=== PATIENT | female | born 1990 | race Caucasian/White ===

== ENCOUNTER 2021-01-04 15:24 | Emergency (ER) | payer SELFPAY ==
[2021-01-04 16:12] LABS: CHLORIDE,CL 97 mEq/L (98-106); SODIUM,NA 141 mEq/L (136-145)
--- NOTE | 2021-01-04 16:41 | EDM.PDOC ---
ED HPI GENERAL MEDICAL PROBLEM - General Chief Complaint: General Stated Complaint: "mental" Time Seen by Provider: 01/04/21 15:35 Source of Information: Reports: Patient, RN - History of Present Illness INITIAL COMMENTS - FREE TEXT/NARRATIVE: States that she has been drinking heavily for some time. She admits to drinking a gallon of vodka daily for some time. She has had 750 ml today already, She s tates that she feels that she should get some help. She wants to go to the [facility]. She has been there before. "I'm a mess". She is alert and oriented. She is walking, talking and laughing. 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 - Past Surgical History Dermatological Surgical History: Reports: Other (See Below) Social & Family History - Family History Family Medical History: Unobtainable - Tobacco Use Tobacco Use Status *Q: Current Every Day Tobacco User Years of Tobacco use: 15 Packs/Tins Daily: 1 - Alcohol Use Days Per Week of Alcohol Use: 7 Number of Drinks Per Day: 1 Total Drinks Per Week: 7 - Recreational Drug Use Recreational Drug Use: Yes Recreational Drug Type: Reports: Marijuana/Hashish Recreational Drug Use Frequency: Socially - Living Situation & Occupation Living situation: Reports: Other Occupation: Unemployed ED ROS GENERAL - Review of Systems Review Of Systems: See Below Constitutional: Denies: Fever, Chills, Weakness HEENT: Reports: No Symptoms Respiratory: Reports: No Symptoms Cardiovascular: Reports: No Symptoms GI/Abdominal: Reports: No Symptoms : Reports: No Symptoms Musculoskeletal: Reports: No Symptoms Skin: Reports: No Symptoms Neurological: Reports: No Symptoms Psychiatric: Reports: Anxiety ED EXAM, GENERAL - Physical Exam Exam: See Below Exam Limited By: No Limitations General Appearance: Alert, WD/WN, No Apparent Distress Throat/Mouth: Normal Oropharynx, Normal Voice Head: Atraumatic, Normocephalic Neck: Normal Inspection, Supple, Non-Tender Respiratory/Chest: No Respiratory Distress, Lungs Clear, Normal Breath Sounds Cardiovascular: Regular Rate, Rhythm, Tachycardia GI/Abdominal: Normal Bowel Sounds, Soft, Non-Tender Extremities: Normal Range of Motion, Normal Capillary Refill Neurological: Alert, Oriented, Normal Cognition Psychiatric: Normal Affect Skin Exam: Warm, Dry, Intact Course - Vital Signs Last Recorded V/S: Last Vital Signs Temp 99.3 F 01/04/21 15:26 Pulse 133 H 01/04/21 16:17 Resp 16 01/04/21 15:26 BP 150/91 H 01/04/21 15:26 Pulse Ox 96 01/04/21 15:26 - Orders/Labs/Meds Orders: Active Orders 24 hr Category Date Time Status ACETAMINOPHEN [REF] Routine Lab 01/04/21 15:39 Received SALICYLATE [REF] Routine Lab 01/04/21 15:41 Received Labs: Laboratory Tests 01/04/21 01/04/21 01/04/21 Range/Units 15:39 15:39 15:39 WBC 10.8 H (5.0-10.0) 10^3/uL RBC 4.02 (4.00-5.50) 10^6/uL Hgb 13.1 (12.0-16.0) g/dL Hct 39.0 (37.0-47.0) % MCV 97.0 H (82.0-94.0) fL MCH 32.6 H (27.0-32.0) pg MCHC 33.6 (33.0-38.0) g/dL RDW Coeff of Deb 16.2 H (11.0-15.0) % Plt Count 414 H (150-400) 10^3/uL Neut % (Auto) 58.9 (35-85) % Lymph % (Auto) 34.0 (10-55) % Bulloch % (Auto) 6.1 (0-16) % Eos % (Auto) 0.3 (0-5) % Baso % (Auto) 0.7 (0-3) % Neut # (Auto) 6.34 (1.80-7.00) 10^3/uL Lymph # (Auto) 3.65 (1.00-4.80) 10^3/uL Bulloch # (Auto) 0.66 (0.00-0.80) 10^3/uL Eos # (Auto) 0.03 (0.00-0.45) 10^3/uL Baso # (Auto) 0.07 10^3/uL Sodium 141 (136-145) mEq/L Potassium 4.0 (3.5-5.0) mEq/L Chloride 97 L (98-106) mEq/L Carbon Dioxide 19 L (21-32) mmol/L BUN 8 (7-18) mg/dL Creatinine 0.8 (0.6-1.0) mg/dL Est Cr Clr Drug Dosing 83.51 mL/min Estimated GFR (MDRD) > 60 (>=60) mL/min Glucose 68 L D (75-99) mg/dL Calcium 9.3 (8.4-10.1) mg/dL Total Bilirubin 0.6 (0.0-1.0) mg/dL AST 70 H (15-37) U/L ALT 64 (12-78) U/L Alkaline Phosphatase 76 (46-116) U/L Total Protein 8.3 H (6.4-8.2) g/dL Albumin 4.0 (3.4-5.0) g/dL Urine Opiates Screen Negative (NEGATIVE) Ur Oxycodone Screen Negative (NEGATIVE) Urine Methadone Screen Negative (NEGATIVE) Ur Barbiturates Screen Negative (NEGATIVE) U Tricyclic Antidepress Negative (NEGATIVE) Ur Phencyclidine Scrn Negative (NEGATIVE) Ur Amphetamine Screen Negative (NEGATIVE) U Methamphetamines Scrn Negative (NEGATIVE) Urine MDMA Screen Negative (NEGATIVE) U Benzodiazepines Scrn Negative (NEGATIVE) Urine Cocaine Screen Negative (NEGATIVE) U Marijuana (THC) Screen Negative (NEGATIVE) Ethyl Alcohol 455 H* (0-3) mg/dL SARS CoV-2 RNA Rapid MAICO (NEGATIVE) 01/04/21 Range/Units 16:44 WBC (5.0-10.0) 10^3/uL RBC (4.00-5.50) 10^6/uL Hgb (12.0-16.0) g/dL Hct (37.0-47.0) % MCV (82.0-94.0) fL MCH (27.0-32.0) pg MCHC (33.0-38.0) g/dL RDW Coeff of Deb (11.0-15.0) % Plt Count (150-400) 10^3/uL Neut % (Auto) (35-85) % Lymph % (Auto) (10-55) % Bulloch % (Auto) (0-16) % Eos % (Auto) (0-5) % Baso % (Auto) (0-3) % Neut # (Auto) (1.80-7.00) 10^3/uL Lymph # (Auto) (1.00-4.80) 10^3/uL Bulloch # (Auto) (0.00-0.80) 10^3/uL Eos # (Auto) (0.00-0.45) 10^3/uL Baso # (Auto) 10^3/uL Sodium (136-145) mEq/L Potassium (3.5-5.0) mEq/L Chloride (98-106) mEq/L Carbon Dioxide (21-32) mmol/L BUN (7-18) mg/dL Creatinine (0.6-1.0) mg/dL Est Cr Clr Drug Dosing mL/min Estimated GFR (MDRD) (>=60) mL/min Glucose (75-99) mg/dL Calcium (8.4-10.1) mg/dL Total Bilirubin (0.0-1.0) mg/dL AST (15-37) U/L ALT (12-78) U/L Alkaline Phosphatase (46-116) U/L Total Protein (6.4-8.2) g/dL Albumin (3.4-5.0) g/dL Urine Opiates Screen (NEGATIVE) Ur Oxycodone Screen (NEGATIVE) Urine Methadone Screen (NEGATIVE) Ur Barbiturates Screen (NEGATIVE) U Tricyclic Antidepress (NEGATIVE) Ur Phencyclidine Scrn (NEGATIVE) Ur Amphetamine Screen (NEGATIVE) U Methamphetamines Scrn (NEGATIVE) Urine MDMA Screen (NEGATIVE) U Benzodiazepines Scrn (NEGATIVE) Urine Cocaine Screen (NEGATIVE) U Marijuana (THC) Screen (NEGATIVE) Ethyl Alcohol (0-3) mg/dL SARS CoV-2 RNA Rapid MAICO Negative (NEGATIVE) - Re-Assessments/Exams Free Text/Narrative Re-Assessment/Exam: 01/04/21 16:44 Discussed pt with screener from [facility] in [place]. 01/04/21 17:00 Martha from the screener returned call after talking to the [facility]. She talked to the pt. She denies any suicidal thoughts and states that she doesn't want to hurt herself. Screener states that at this time the [facility] will not accept her until her Blood alcohol is below 0.25. They recommend that she be detox here until the level is down. Pt is agreeable to this plan. I did inform her that she is not able to smoke while she is here. She refuses to have nicotine patch applied states that she will try it without anything. Pt will be admitted observation here with IV fluids and ativan if needed for DT's. 01/04/21 17:34 Martha from [facility] screeners returned a call and the [facility] will accept the pt at this time. [facility] office will transfer. Departure - Departure Time of Disposition: 17:32 Disposition: DC/Tfer to Psych Hosp/Unit [facility] Condition: Good Clinical Impression: Intoxication, Alcohol abuse - Discharge Information *PRESCRIPTION DRUG MONITORING PROGRAM REVIEWED*: Not Applicable *COPY OF PRESCRIPTION DRUG MONITORING REPORT IN PATIENT JACK: Not Applicable Referrals: PCP,Unknown [Primary Care Provider] - Forms: ED Department Discharge Sepsis Event Note (ED) - Evaluation Sepsis Screening Result: No Definite Risk - Focused Exam Vital Signs: Vital Signs Temp Pulse Resp BP Pulse Ox 01/04/21 16:17 133 H 01/04/21 15:26 99.3 F 136 H 16 150/91 H 96 - Problem List & Annotations (1) Alcohol abuse SNOMED Code(s): 98696123 Code(s): F10.10 - ALCOHOL ABUSE, UNCOMPLICATED Status: Acute Priority: High Current Visit: Yes - Problem List Review Problem List Initiated/Reviewed/Updated: Yes - My Orders Last 24 Hours: My Active Orders 01/04/21 15:39 ACETAMINOPHEN [REF] Routine 01/04/21 15:41 SALICYLATE [REF] Routine - Assessment/Plan Last 24 Hours: My Active Orders 01/04/21 15:39 ACETAMINOPHEN [REF] Routine 01/04/21 15:41 SALICYLATE [REF] Routine Plan: transfer to [facility] with the slitter cut off operator's department to transfer.
[2021-01-04 17:52] VITALS: BP 145/82; PULSE 128
== END 2021-01-04 17:57 ==
LOC: CC.ED 15:24
DX: F10.129 Alcohol abuse with intoxication, unspecified (principal); Y90.8 Blood alcohol level of 240 mg/100 ml or more; Z72.0 Tobacco use; Z88.0 Allergy status to penicillin; Z79.899 Other long term (current) drug therapy; Z20.822 Contact with and (suspected) exposure to COVID-19
CPT/HCPCS: 36415; 80053; 80143; 80179; 80305-QW; 80307; 85025; 99285; U0002